=== PATIENT | male | born 1955 | race Caucasian/White ===

== ENCOUNTER 2017-11-21 05:36 | Emergency (ER) | payer OTHER ==
[~2017-11-21] VITALS: Ht 160 cm; Wt 77.3 kg
[2017-11-21] MEDS ORDERED: OXYC10TA93 PO (05:54)
[2017-11-21 07:11] VITALS: BP 170/100
[2017-11-21] MEDS ORDERED: SODIUM CHLORIDE 0.9% 250 ML IRRIG SOLUTION BOTTLE IRRIG ONE (07:15)
[2017-11-21] MEDS ORDERED: PERTUSS(ACELL),DIPH,TET VAC/PF 0.5 ML VIAL IM ONE (07:15)
[2017-11-21] MEDS ORDERED: HYDROCODONE/ACETAMINOPHEN 5-325 MG TABLET PO ONE (07:15)
[2017-11-21] MEDS ORDERED: PROPARACAINE/FLUORESCEIN SOD 0.5-0.25% 0.5 ML OPHTHALMIC SOLUTION OS ONE (07:15)
[2017-11-21] MEDS ORDERED: LIDOCAINE HCL 1% 10 ML VIAL ONE (08:59)
== END 2017-11-21 09:30 | disposition home or self-care (01) ==
LOC: EMS 05:37
DX: S01.81XA Laceration without foreign body of other part of head, initial encounter (principal); H11.32 Conjunctival hemorrhage, left eye; F17.210 Nicotine dependence, cigarettes, uncomplicated; I10 Essential (primary) hypertension; E05.90 Thyrotoxicosis, unspecified without thyrotoxic crisis or storm; X58.XXXA Exposure to other specified factors, initial encounter; Y93.89 Activity, other specified; Y92.89 Other specified places as the place of occurrence of the external cause; Y99.8 Other external cause status
CPT/HCPCS: 12013; 90471; 90715; 99283; J3490; Z7610

== ENCOUNTER 2022-12-10 13:47 | Emergency (ER) | payer OTHER ==
[~2022-12-10] VITALS: Ht 154.9 cm; Wt 63.6 kg
[~2022-12-10 13:47] MED LIST: ATOR40TA71 PO; CARV3.1231 PO; CEFT2VIA60 IM; ISOS30TA92 PO; LEVO125T95 PO; METH5SOL3 PO; PROP10TA73 PO; TAMS-13 PO; VANC250C6 PO
[2022-12-10] MEDS ORDERED: VALS40TA11 PO (14:11)
[2022-12-10] MEDS ORDERED: ASPI-1451 PO (14:11)
[2022-12-10] MEDS ORDERED: HYDR25TA84 PO (14:11)
[2022-12-10] MEDS ORDERED: HYDR-4174 PO (14:11)
[2022-12-10 14:15] VITALS: BP 142/88; PULSE 89; RESP 16; TEMP 97.8
[2022-12-10] MEDS ORDERED: ONDANSETRON HCL 4 MG/2 ML VIAL IVP ONE (14:30)
[2022-12-10 15:07] LABS: BASOPHILS % (AUTO) 0.6 % (0.0-2.0); EOSINOPHILS % (AUTO) 1.9 % (1.0-6.0); HEMATOCRIT 34.7 % (41-53); HEMOGLOBIN 10.8 g/dL (13.5-17.5); LYMPHOCYTES # (AUTO) 1.2 K/uL (1.0-4.8); MEAN CORPUSCULAR HGB CONC 31.1 G/dL (31.0-37.0); MEAN CORPUSCULAR VOLUME 80 fL (80-100); MONOCYTES # (AUTO) 0.5 K/uL (0.1-1.0); MONOCYTES % (AUTO) 14.9 % (2.0-9.0); NEUTROPHILS # (AUTO) 1.7 K/uL (1.8-7.7); NEUTROPHILS % (AUTO) 48.6 % (40.0-70.0); PLATELET COUNT (AUTO) 120 K/uL (150-450); RED BLOOD CELL COUNT(AUTO) 4.31 MIL/uL (4.50-5.90)
[2022-12-10 15:15] LABS: CALCIUM, TOTAL 8.6 mg/dL (8.8-10.5); CREATININE 1.53 mg/dL (0.60-1.30); POTASSIUM 3.4 mmol/L (3.5-5.1)
[2022-12-10 15:21] LABS: AMPHET/METH SCREEN,URINE POSITIVE (NEGATIVE); BARBITURATE SCREEN, URINE NEGATIVE (NEGATIVE); BENZODIAZEPINES SCREEN,URINE NEGATIVE (NEGATIVE); CANNABINOID SCREEN,URINE NEGATIVE (NEGATIVE); COCAINE SCREEN,URINE NEGATIVE (NEGATIVE); METHADONE SCREEN, URINE POSITIVE (NEGATIVE); OPIATE SCREEN,URINE NEGATIVE (NEGATIVE); PHENCYCLIDINE SCREEN,URINE NEGATIVE (NEGATIVE)
[2022-12-10 15:39] LABS: BILIRUBIN,TOTAL 0.8 mg/dL (0.1-1.0)
== END 2022-12-10 17:01 | disposition left against medical advice (07) ==
LOC: EMS 13:48
DX: T40.601A Poisoning by unspecified narcotics, accidental (unintentional), initial encounter (principal); I10 Essential (primary) hypertension; E05.90 Thyrotoxicosis, unspecified without thyrotoxic crisis or storm; F11.90 Opioid use, unspecified, uncomplicated; Y92.89 Other specified places as the place of occurrence of the external cause
CPT/HCPCS: 99284; 96374; 80053; 82550; 83880; 84484; 85025; 36415; 93005; 80307 ×2; G0480; J2405

== ENCOUNTER 2024-04-15 21:05 | Emergency (ER) | payer MEDICAID, OTHER ==
[~2024-04-15] VITALS: Ht 160 cm; Wt 63.6 kg
[~2024-04-15 21:05] MED LIST changes: +ASPI-1451 PO; -CEFT2VIA60 IM; +HYDR25TA84 PO; +HYDR50TA37 PO; +METH5SOL20 PO; -METH5SOL3 PO; -PROP10TA73 PO; -TAMS-13 PO; +TAMS0.4C94 PO; +VALS40TA11 PO; -VANC250C6 PO
[2024-04-15 21:51] LABS: BASOPHILS % (AUTO) 0.5 % (0.0-2.0); EOSINOPHILS % (AUTO) 1.1 % (1.0-6.0); HEMATOCRIT 32.7 % (41-53); HEMOGLOBIN 10.4 g/dL (13.5-17.5); LYMPHOCYTES % (AUTO) 10.7 % (22.0-44.0); MEAN CORPUSCULAR HEMOGLOBIN 25.5 pg (26.0-34.0); MEAN CORPUSCULAR HGB CONC 31.9 G/dL (31.0-37.0); MEAN CORPUSCULAR VOLUME 80 fL (80-100); MONOCYTES # (AUTO) 1.4 K/uL (0.1-1.0); MONOCYTES % (AUTO) 15.3 % (2.0-9.0); NEUTROPHILS # (AUTO) 6.5 K/uL (1.8-7.7); NEUTROPHILS % (AUTO) 72.4 % (40.0-70.0); PLATELET COUNT (AUTO) 232 K/uL (150-450); RED BLOOD CELL COUNT(AUTO) 4.07 MIL/uL (4.50-5.90); RED CELL DISTRIBUTION WIDTH 15.7 % (11.5-14.5); WHITE BLOOD COUNT (AUTO) 8.9 K/uL (4.5-11.0)
[2024-04-15 21:56] LABS: COVID AG,FIA SOURCE NASAL SWAB
[2024-04-15 21:58] LABS: ALCOHOL, BLOOD (SERUM) < 3 mg/dL (0-10); ANION GAP 8 mmol/L (8-16); CALCIUM, TOTAL 8.4 mg/dL (8.8-10.5); CARBON DIOXIDE 25 mmol/L (22-29); CHLORIDE 98 mmol/L (98-107); CREATININE 1.18 mg/dL (0.60-1.30); GLOMERULAR FILTR. RATE CALC > 60 mL/min (>60); GLUCOSE,RANDOM 103 mg/dL (70-110); POTASSIUM 3.5 mmol/L (3.5-5.1); SODIUM SERUM 131 mmol/L (136-145); UREA NITROGEN, BLOOD 19 mg/dL (7-18)
[2024-04-15 22:22] LABS: SARS-COV2 (COVID) ANTIGEN,FIA Negative (Negative)
[2024-04-16 02:30] VITALS: BP 135/74; PULSE 72; RESP 16; TEMP 97.9; O2SAT 98
[2024-04-16] MEDS: IBUPROFEN 400 MG TABLET PO ONE (04:35)
== END 2024-04-16 05:39 | disposition home or self-care (01) ==
LOC: EMS 21:05
DX: S80.812A Abrasion, left lower leg, initial encounter (principal); D64.9 Anemia, unspecified; I10 Essential (primary) hypertension; Z79.899 Other long term (current) drug therapy; Z86.19 Personal history of other infectious and parasitic diseases; Z20.822 Contact with and (suspected) exposure to COVID-19; W19.XXXA Unspecified fall, initial encounter; Y93.89 Activity, other specified; Y92.89 Other specified places as the place of occurrence of the external cause; Y99.8 Other external cause status
CPT/HCPCS: 99283; 87426; 80048; 85025; 36415; G0480